=== PATIENT | male | born 2000 | race Two or more races ===

== ENCOUNTER 2021-05-05 18:52 | Emergency (ER) | payer OTHER ==
[~2021-05-05] VITALS: Ht 170.2 cm; Wt 75.3 kg
--- NOTE | 2021-05-05 19:25 | NUR ---
Dr. Hewitt at bedside for MSE.
[2021-05-05] MEDS ORDERED: IV NORMAL SALINE 1000 ML BAG IV ONE (19:45)
[2021-05-05] MEDS ORDERED: ONDANSETRON 4 MG/2 ML VIAL IV ONE (19:45)
[2021-05-05] MEDS ORDERED: HYDROMORPHONE 1 MG/1 ML DISP.SYRIN IV ONE (19:45)
[2021-05-05] MEDS ORDERED: HYDROMORPHONE 1 MG/1 ML DISP.SYRIN ONE (19:46)
[2021-05-05] MEDS ORDERED: ONDANSETRON 4 MG/2 ML VIAL ONE (19:46)
--- NOTE | 2021-05-05 19:47 | NUR ---
Xray at bedside
[2021-05-05 19:50] LABS: *BILIRUBIN,URIN NEGATIVE (NEGATIVE); *BLOOD, URINE 1+ (NEGATIVE); *CLARITY,URINE CLEAR (CLEAR); *COLOR,URINE YELLOW (YELLOW); *KETONES,URINE NEGATIVE (NEGATIVE); *UROBILINOGEN,URINE 0.2 E.U./dl (NORMAL); LEUKOCYTE ESTERASE ,URINE NEGATIVE (NEGATIVE); MEAN CORPUSCULAR HEMOGLOBIN 29.9 uug (23.8-33.4); MEAN CORPUSCULAR VOLUME 86.6 fL (73.0-96.2); NITRITE, URINE NEGATIVE (NEGATIVE); PLATELET COUNT (AUTO) 286 K/uL (152-348); UGLUCOSE NEGATIVE (NEGATIVE)
[2021-05-05 19:55] LABS: BACTERIA,URINE NONE SEEN /HPF (NONE SEEN); SQUAMOUS EPITHELIAL CELL,UR FEW /HPF (NONE SEEN); URINE AMORPHOUS URATE FEW /HPF
[2021-05-05 19:56] LABS: CREATININE 1.6 mg/dL (0.6-1.3); POTASSIUM 3.8 mmol/L (3.5-5.1)
[2021-05-05 20:02] LABS: BILIRUBIN,DIRECT 0.1 mg/dL (0.0-0.2); BILIRUBIN,TOTAL 0.5 mg/dL (0.2-1.0); TOTAL PROTEIN, SERUM 9.1 g/dL (6.4-8.2)
--- NOTE | 2021-05-05 20:25 | NUR ---
PT out of ER for CT.
--- NOTE | 2021-05-05 20:37 | NUR ---
Pt back to ER from CT.
[2021-05-05] MEDS ORDERED: PROC-11 PO (21:18)
[2021-05-05] MEDS ORDERED: HYDR-3980 PO (21:18)
--- NOTE | 2021-05-05 21:30 | NUR ---
Patient discharged to home in stable condition. Written and verbal after care instructions given. Patient verbalizes understanding of instructions. Stressed follow up or return to ER for worsening s/s. Pt out of ER with steady gait, no acute signs of distress, VSS, all belongings taken, IV site discontinued, provided with copies of CT results.
[2021-05-05 21:31] VITALS: BP 124/80
== END 2021-05-05 21:31 | disposition home or self-care (01) ==
LOC: ER 18:52
DX: I88.0 Nonspecific mesenteric lymphadenitis (principal)
CPT/HCPCS: 36415; 74018; 74176; 80048; 80076; 81001; 85025; 96361; 96374; 99284; J1170; J2405; A4663; J7030